=== PATIENT | male | born 1950 | race Hispanic/Latino ===

== ENCOUNTER → 2024-11-16 | Outpatient (CLI) | payer OTHER ==
[~2024-11-16] MED LIST: ASCO500T20 PO; CHOL200016 PO; FINA5TAB41 PO; HYDR25TA PO; LISI40TA9 PO; VITA400T7 PO; [UNRECOGNIZED DRUG - OTHER] PO
--- NOTE | 2024-11-16 14:22 | EKG ---
[facility] Test Date: 2024-11-16 Test Time: 14:10:22 Pat Name: EDEN BLANK Department: [facility] Room: Gender: M Client Renewal Specialist: [id number] : 1950 Requested By: AARON OMALLEY Order Number: [id number] Reading MD: Kathryn Adame Measurements Intervals [place] Rate: 80 P: 0 NE: 0 QRS: -59 QRSD: 123 T: 41 QT: 393 QTc: 453 Interpretive Statements Atrial fibrillation Left bundle branch block Compared to ECG 04/19/2016 06:51:13 Left bundle-branch block now present Sinus rhythm no longer present Electronically Signed On 11-19-2024 08:16:18 [employer] by Kathryn Adame Please click the below link to view image of tracing.
--- NOTE | 2024-11-17 00:35 | HMCSR ---
APPROVED REPORT EXAM: Two-dimensional and M-mode echocardiogram with Doppler and color Doppler. INDICATION ICD: I25.9 Chronic ischemic heart disease, unspecified 2D Dimensions RVDd4.1 cmLVEF(%)55.3 (>50%)LVED Vol(simp.)103.0 mL IVSd1.3 (0.7-1.1cm)FS(%)29 %LVES Vol(simp.)43.9 mL LVDd5.2 (3.8-5.6cm)LA (2D)4.5 (1.6-4.0cm)LVEF(%, simp.)57 % PWd1.2 (0.7-1.1cm)Ao Root(2D)3.7 (2.0-3.7cm)LA ESV INDEX (4CH)40.30 mL/m2 IVSs1.3 cmLVOT diam2.3 (1.8-2.4cm)LA ESV INDEX (2CH)30.30 mL/m2 LVDs3.7 (2.5-4.0cm)LA ESV INDEX (BP)37.30 mL/m2 PWs1.3 cm M-Mode Dimensions EPSS1.0 cm LA (MM)5.9 (1.6-4.0cm) Ao Root(MM)3.8 (2.0-3.7cm) Aortic Valve AoV VTI0.3 mAo Mean GR5.0 mmHgLVOT VTI0.14 m MERYL (VMAX)2.3 cm2AVA (VTI) 2.3 cm2 TDI Medial E' Peak V9.80 cm/sLateral E' Peak V4.90 cm/s Pulmonary Valve PV Vmax0.8 m/s PV Peak GR2.4 mmHg Tricuspid Valve TR Vmax1.8 m/s TR Peak GR13.6 mmHg Left Ventricle The left ventricle is normal size. The anterior and anterolateral rodríguez are hypokinetic. The other wa lls are grossly normal in function. Mild concentric left ventricular hypertrophy. Left ventricle syst olic function is mild to moderately depressed, estimated LVEF 45%. The LV diastolic function was unab le to be assessed. Right Ventricle The right ventricle is normal size. The right ventricular systolic function is normal. Atria The left atrium is mildly dilated, 40 mL/m. The right atrium size is normal. Aortic Valve Aortic valve is trileaflet. The leaflets are mildly thickened and calcified. Mild aortic regurgitatio n. There is no aortic valvular stenosis. Mitral Valve The mitral valve is normal in structure and function. The leaflets are mildly thickened and calcified . Trace mitral regurgitation. There is no mitral valve stenosis. Tricuspid Valve The tricuspid valve is normal in structure. Trace tricuspid regurgitation. RVSP is 14 mmHg. Pulmonic Valve Pulmonic valve is not well visualized. Great Vessels The aortic root is normal in size. The IVC is normal in size and collapses >50% with inspiration. Pericardium There is no pericardial effusion. Other Information Quality : Fair Conclusion The left atrium is mildly dilated, 40 mL/m. Mild concentric left ventricular hypertrophy. The anterior and anterolateral rodríguez are hypokinetic. The other rodríguez are grossly normal in function . Left ventricle systolic function is mild to moderately depressed, estimated LVEF 45%. The LV diastolic function was unable to be assessed. Mild aortic regurgitation. Trace mitral regurgitation. Trace tricuspid regurgitation. PASP is 17 mmHg. There is no pericardial effusion.
== END | disposition home or self-care (01) ==
LOC: RAH 12:51
PROVIDERS: ATTEND Chiropractor
DX: I08.0 Rheumatic disorders of both mitral and aortic valves (principal); I25.9 Chronic ischemic heart disease, unspecified
CPT/HCPCS: 93005; 93306